=== PATIENT | male | born 1985 | race African-American/Black ===

== ENCOUNTER 2017-01-30 14:47 | Emergency (ER) | payer MEDICAID ==
[~2017-01-30 14:47] MED LIST: BUPR150T12 PO; DIVA500T2 PO
--- NOTE | 2017-01-30 15:06 | NUR ---
Patient eloped from facility. ER MD notified.
--- NOTE | 2017-01-30 15:06 | NUR ---
PATIENT REFUSED TO BE TRIAGED
== END 2017-01-30 15:07 | disposition home or self-care (01) ==
LOC: ER 14:50
DX: Z53.21 Procedure and treatment not carried out due to patient leaving prior to being seen by health care provider (principal)

== ENCOUNTER 2017-07-22 01:14 | Emergency (ER) | payer MEDICAID ==
[~2017-07-22] VITALS: Ht 188 cm; Wt 86.2 kg
[2017-07-22 01:21] VITALS: BP 184/112
== END 2017-07-22 01:48 | disposition home or self-care (01) ==
LOC: ER 01:16
DX: J06.9 Acute upper respiratory infection, unspecified (principal); I10 Essential (primary) hypertension; F20.9 Schizophrenia, unspecified; F31.9 Bipolar disorder, unspecified; F17.210 Nicotine dependence, cigarettes, uncomplicated; F12.10 Cannabis abuse, uncomplicated
CPT/HCPCS: 99282; A4606; Z7610